=== PATIENT | male | born 1960 | race Caucasian/White ===

== ENCOUNTER → 2021-06-18 | Outpatient (CLI) | payer OTHER | LOC: CT 11:50 | PROVIDERS: Otolaryngology | DX: C02.9 Malignant neoplasm of tongue, unspecified (principal); R59.1 Generalized enlarged lymph nodes; R93.89 Abnormal findings on diagnostic imaging of other specified body structures | CPT/HCPCS: 36415; 70491; 80053; 82565; 84520; Q9967 ==

== ENCOUNTER → 2021-11-16 | Outpatient (CLI) | payer OTHER ==
[2021-11-16 07:29] LABS: HEMOGLOBIN 14.6 gm/dl (14.0-17.5); RED BLOOD COUNT 4.56 M/UL (4.20-5.50); WHITE BLOOD COUNT 5.8 K/UL (4.5-11.0)
== END ==
LOC: CT 07:06
PROVIDERS: Internal Medicine Hematology & Oncology
DX: C01 Malignant neoplasm of base of tongue (principal)
CPT/HCPCS: 36415; 70491; 71260; 80053; 83615; 85025; Q9967

== ENCOUNTER 2021-12-10 16:32 | Emergency (ER) | payer OTHER ==
[2021-12-10] MEDS ORDERED: NAPROXEN500 MG PO (17:40)
[2021-12-10] MEDS ORDERED: BACTROBAN OINT22 GM EXT (17:40)
== END 2021-12-10 18:00 | disposition home or self-care (01) ==
LOC: ER1 16:32
DX: T23.242A Burn of second degree of multiple left fingers (nail), including thumb, initial encounter (principal); T23.241A Burn of second degree of multiple right fingers (nail), including thumb, initial encounter; T22.212A Burn of second degree of left forearm, initial encounter; I10 Essential (primary) hypertension; X19.XXXA Contact with other heat and hot substances, initial encounter; Y92.009 Unspecified place in unspecified non-institutional (private) residence as the place of occurrence of the external cause
CPT/HCPCS: 96372; 99283; J1885